=== PATIENT | female | born 1985 | race Caucasian/White ===

== ENCOUNTER 2017-02-09 14:26 | Emergency (ER) | payer SELFPAY ==
[~2017-02-09] VITALS: Ht 165.1 cm; Wt 66.0 kg
[2017-02-09 14:37] VITALS: BP 118/70; PULSE 88; RESP 16; TEMP 98.6; O2SAT 100
--- NOTE | 2017-02-09 15:14 | PD ---
HPI Chief Complaint: Fall Time Seen by Provider: 14:39 Travel History International Travel<30 days: No Contact w/Intl Traveler<30days: No Traveled to known affect area: No History of Present Illness HPI This is a 31-year-old female with a history of polycystic ovarian disease, endometriosis, pituitary tumor, presents today with complaints of neck and head pain and lower back pain. The patient was at the [facility] for which she is being treated for opiate addiction, and was leaning back on a chair when she slipped and fell striking her head and low back. She states she heard a crack in her neck when she slid back. There is no numbness or tingling of her extremities. There is no weakness noted. There are no other complaints. The patient denies any loss of consciousness. PFSH Past Medical History ?: Not Social History Alcohol Use: Yes Tobacco Use: Yes Substance Use: Yes (in-pt recovery unit) Allergies-Medications (Allergen,Severity, Reaction): Coded Allergies: No Known Allergies (Unverified , 02/09/17) Reported Meds & Prescriptions Reported Meds & Active Scripts Active Reported Trazodone (Trazodone HCl) 50 Mg Tab 50 Mg PO HS PRN Colace (Docusate Sodium) 100 Mg Cap 100 Mg PO BID PRN Bisacodyl EC (Bisacodyl) 5 Mg Tabec 5 Mg PO DAILY PRN Guaifenesin 100 Mg/5 Ml Syp 30 Ml PO Q4HR PRN Clonidine (Clonidine HCl) 0.1 Mg Tab 0.1 Mg PO Q4-6H PRN Vistaril (Hydroxyzine Pamoate) 50 Mg Cap 50 Mg PO Q4-6H PRN Bentyl (Dicyclomine HCl) 20 Mg Tab 20 Mg PO QID PRN Benadryl Allergy (Diphenhydramine HCl) 25 Mg Tab 25 Mg PO Q6H PRN Milk of Magnesia Liq (Magnesium Hydroxide) 400 Mg/5 Ml Susp 30 Ml PO DAILY PRN Loperamide (Loperamide HCl) 2 Mg Cap 2 Mg PO DIRECTED PRN Two capsule after initial loose stool , then one capsuleeach loose stool. Not to exceed 8 capsules per day. Tums (Calcium Carbonate (Antacid)) 500 Mg Chew 500-1,000 Mg CHEW TID PRN Mylanta Liq (Wikljqvb-Wuukfzlen-Eymfpqleajf Liq) 200-200-20 Mg/5 Ml Susp 30 Ml PO Q2-3HR PRN Take between meals or as directed. Shake well. Maximum 120 ml/24 hrs. Mapap (Acetaminophen) 500 Mg Tab 1,000 Mg PO Q6HR PRN Ibuprofen 400 Mg Tab 400 Mg PO Q4H PRN Zofran Odt (Ondansetron Odt) 4 Mg Tab 4 Mg SL Q6HR PRN Folate (Folic Acid) 1 Mg Tab 1 Mg PO DAILY Thiamine (Thiamine HCl) 100 Mg Tab 100 Mg PO DAILY Multi Vitamin (Multiple Vitamin) 1 Tab Tab 1 Tab PO DAILY Ibuprofen 800 Mg Tab 800 Mg PO TID Vistaril (Hydroxyzine Pamoate) 50 Mg Cap 50 Mg PO TID Prozac (Fluoxetine HCl) 40 Mg Cap 40 Mg PO DAILY Seroquel (Quetiapine Fumarate) 100 Mg Tab 100 Mg PO HS Levsin-SL (Hyoscyamine Sulfate) 0.125 Mg Subl 0.125 Mg SL QID Suboxone Sublingual Film (Buprenorphine-Naloxone Sublingual Film) 8-2 Mg Film 1 Film SL BID Unique ID number required: Bactrim DS (Sulfamethoxazole-Trimethoprim) 800-160 Mg Tab 1 Tab PO BID Nicotine Patch (Nicotine) 14 Mg/24 Hr Patch 14 Mg T-DERMAL DAILY Wellbutrin Xl 24 HR (Bupropion HCl) 150 Mg Tab 150 Mg PO DAILY Review of Systems Except as stated in HPI: all other systems reviewed are Neg Eyes: No: Diploplia, Blurred Vision, Photophobia HENT: Positive: Headaches, Neck Pain Cardiovascular: No: Chest Pain or Discomfort, Palpitations Respiratory: No: Cough, Shortness of Breath Gastrointestinal: No: Nausea, Vomiting Musculoskeletal: Positive: Pain (pain in the low back), No: Limited ROM, Weakness Neurologic: Positive: Headache, No: Weakness, Focal Abnormalities, Change in Mentation Physical Exam Narrative GENERAL: Well-nourished, well-developed patient, in C-spine immobilization. SKIN: Focused skin assessment warm/dry. HEAD: Normocephalic. The patient has subjective tenderness in the back of her head. There is no hematoma or abrasion. EYES: No scleral icterus. No injection or drainage. NECK: Trachea midline. Patient in c-collar immobilization. She reports pain in her upper neck. There is no posterior spinous process tenderness to palpation. CARDIOVASCULAR: Regular rate and rhythm without murmurs, gallops, or rubs. RESPIRATORY: Breath sounds equal bilaterally. No accessory muscle use. GASTROINTESTINAL: Abdomen soft, non-tender, nondistended. MUSCULOSKELETAL: No cyanosis, or edema. BACK: Subjective tenderness in the lower lumbar region. NEUROLOGICAL: Awake and alert. Cranial nerves II through XII intact. Motor grossly within normal limits. Five out of 5 muscle strength in all muscle groups. Normal speech. Data Data Last Documented VS Vital Signs Date Time Temp Pulse Resp B/P Pulse Ox O2 Delivery O2 Flow Rate FiO2 02/09/17 14:44 100 Room Air 02/09/17 14:37 98.6 88 16 118/[address] Brain W/O Iv Contrast(Rout) (02/09/17 14:40) Ct Cerv Spine W/O Contrast (02/09/17 14:40) Spine, Lumbar - Ltd (Ap & Lat) (02/09/17 14:40) Ketorolac Inj (Toradol Inj) (02/09/17 16:00) MDM Medical Decision Making Medical Screen Exam Complete: Yes Emergency Medical Condition: Yes Differential Diagnosis Blunt head trauma versus intracranial hemorrhage versus cervical spine injury versus lumbar spine injury Narrative Course 31-year-old who status post falling backwards on a chair striking her head neck and lower back. The patient presents with head neck and lower back pain. CT head cervical spine and lumbar spine plain x-ray show no evidence of acute injury. The patient will be discharged with a Medrol Dosepak. She'll be instructed to use Motrin for pain. Diagnosis Primary Impression: Closed head injury Additional Impressions: Cervical strain Lumbar strain Additional Instructions: Ice 24 hours then moist heat. Ibuprofen for discomfort. Med/Other Pt SpecificInfo: Prescription(s) given Scripts Methylprednisolone Dosepak (Medrol Dosepak)4 Mg Dspk4 Mg PO DIRECTED #1 DSPK Ref 0 Per Pharmacist direction Prov:Kevin Villarreal MD 02/09/17 Disposition: 01 DISCHARGE HOME Condition: Stable Kevin Villarreal MD February 09, 2017 15:14
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
--- NOTE | 2017-02-09 15:45 | RADRPT ---
EXAM DATE/TIME: 02/09/2017 15:37 [facility] COMPARISON: No previous studies available for comparison. INDICATIONS : Fall from chair with head and neck pain. RADIATION DOSE: 35.60 CTDIvol (mGy) MEDICAL HISTORY : None SURGICAL HISTORY : None. ENCOUNTER: Initial ACUITY: 1 day PAIN SCALE: 5/10 LOCATION: Bilateral cranial Head and neck TECHNIQUE: Multiple contiguous axial images were obtained of the head. Using automated exposure control and adj ustment of the mA and/or kV according to patient size, radiation dose was kept as low as reasonably a chievable to obtain optimal diagnostic quality images. FINDINGS: CEREBRUM: The ventricles are normal for age. No evidence of midline shift, mass lesion, hemorrhage or acute in farction. No extra-axial fluid collections are seen. POSTERIOR FOSSA: The cerebellum and brainstem are intact. The 4th ventricle is midline. The cerebellopontine angle i s unremarkable. EXTRACRANIAL: The visualized portion of the orbits is intact. SKULL: The calvaria is intact. No evidence of skull fracture. CONCLUSION: Negative for fracture.. Sanya Kirkland MD FACR on February 09, 2017 at 15:44 Board Certified Radiologist. This report was verified electronically.
[2017-02-09] MEDS ORDERED: BACT800T5 PO (15:49)
[2017-02-09] MEDS ORDERED: BUPR150XL PO (15:49)
[2017-02-09] MEDS ORDERED: NICO14DI T-DERMAL (15:49)
[2017-02-09] MEDS ORDERED: SUBO8MIS SL (15:49)
[2017-02-09] MEDS ORDERED: KETOROLAC TROMETHAMINE 30 MG/ML (IVP) VIAL IV PUSH ONE (16:00)
[2017-02-09] MEDS ORDERED: SERO100T PO (16:01)
[2017-02-09] MEDS ORDERED: MULT-135 PO (16:01)
[2017-02-09] MEDS ORDERED: VIST50CA PO ×2 (16:01→16:17)
[2017-02-09] MEDS ORDERED: LEVS0.124 SL (16:01)
[2017-02-09] MEDS ORDERED: IBUP800T23 PO (16:01)
[2017-02-09] MEDS ORDERED: IBUP400T20 PO (16:01)
[2017-02-09] MEDS ORDERED: THIA100T PO (16:01)
[2017-02-09] MEDS ORDERED: ZOFR4TAB3 SL (16:01)
[2017-02-09] MEDS ORDERED: PROZ40CA PO (16:01)
[2017-02-09] MEDS ORDERED: FOLI1TAB4 PO (16:01)
[2017-02-09] MEDS ORDERED: MAPA500T PO (16:03)
[2017-02-09] MEDS ORDERED: MYLASUS2 PO (16:06)
[2017-02-09] MEDS ORDERED: TUMS500C CHEW (16:08)
[2017-02-09] MEDS ORDERED: LOPE2CAP PO (16:09)
[2017-02-09] MEDS ORDERED: MILKSUS PO (16:11)
[2017-02-09] MEDS ORDERED: BENA25TA3 PO (16:12)
--- NOTE | 2017-02-09 16:15 | RADRPT ---
EXAM DATE/TIME: 02/09/2017 15:37 [facility] COMPARISON: No previous studies available for comparison. INDICATIONS : Fall from chair with head and neck pain. RADIATION DOSE: 19.31 CTDIvol (mGy) MEDICAL HISTORY : None SURGICAL HISTORY : None. ENCOUNTER: Initial ACUITY: 1 day PAIN SCALE: 5/10 LOCATION: Bilateral neck TECHNIQUE: Volumetric scanning of the cervical spine was performed. Multiplanar reconstructions in the sagittal, coronal and oblique axial planes were performed. Using automated exposure control and adjustment o f the mA and/or kV according to patient size, radiation dose was kept as low as reasonably achievable to obtain optimal diagnostic quality images. FINDINGS: Degenerative disc disease is basically isolated and C4-5 with some loss of disc height and anteriorly directed marginal spurs. Vertebral body heights are maintained throughout without fracture or listhe sis. Spinal canal is widely patent. Asymmetry of the lobes of the thyroid with the right larger than the left. Detailed axial images as follows: C2-C3: The bony spinal canal is normal in size. No evidence of disc bulge or herniation. The neural forami na are bilaterally patent. C3-C4: The bony spinal canal is normal in size. No evidence of disc bulge or herniation. The neural forami na are bilaterally patent. C4-C5: The bony spinal canal is normal in size. No evidence of disc bulge or herniation. The neural forami na are bilaterally patent. C5-C6: The bony spinal canal is normal in size. No evidence of disc bulge or herniation. The neural forami na are bilaterally patent. C6-C7: The bony spinal canal is normal in size. No evidence of disc bulge or herniation. The neural forami na are bilaterally patent. C7-T1: The bony spinal canal is normal in size. No evidence of disc bulge or herniation. The neural forami na are bilaterally patent. CONCLUSION: 1. Mild degenerative disc disease isolated to the C4-5 level with some loss of disc height and anteri gilson directed marginal spurring. 2. Otherwise, vertebral heights are maintained throughout without fracture or listhesis. Spinal canal and neural foramina are patent throughout. 3. Asymmetry of the lobes of the thyroid with the right larger than the left. Ronaldo Lockhart MD on February 09, 2017 at 16:10 Board Certified Radiologist. This report was verified electronically.
[2017-02-09] MEDS ORDERED: BENT20TA PO (16:17)
[2017-02-09] MEDS ORDERED: CLON0.1T PO (16:17)
[2017-02-09] MEDS ORDERED: GUAI100S10 PO (16:21)
[2017-02-09] MEDS ORDERED: FLEE5TAB PO (16:23)
[2017-02-09] MEDS ORDERED: TRAZ50TA12 PO (16:25)
[2017-02-09] MEDS ORDERED: COLA100C3 PO (16:25)
[2017-02-09] MEDS ORDERED: MEDR4PAK PO (18:33)
[2017-02-09 19:13] VITALS: BP 115/72; PULSE 78; RESP 18; O2SAT 99
== END 2017-02-09 20:30 | disposition home or self-care (01) ==
LOC: NEPC 14:26
DX: S09.90XA Unspecified injury of head, initial encounter (principal); S16.1XXA Strain of muscle, fascia and tendon at neck level, initial encounter; S39.012A Strain of muscle, fascia and tendon of lower back, initial encounter; W07.XXXA Fall from chair, initial encounter; Y92.538 Other ambulatory health services establishments as the place of occurrence of the external cause
CPT/HCPCS: 70450; 72100; 72125; 96374; 99284; J1885

== ENCOUNTER 2017-05-15 11:53 | Emergency (ER) | payer BC ==
[~2017-05-15] VITALS: Ht 165.1 cm; Wt 72.5 kg
[~2017-05-15 11:53] MED LIST: BACT800T5 PO; BENA25TA3 PO; BENT20TA PO; BUPR150XL PO; CLON0.1T PO; COLA100C3 PO; FLEE5TAB PO; FOLI1TAB4 PO; GUAI100S10 PO; IBUP400T20 PO; IBUP800T23 PO; LEVS0.124 SL; LOPE2CAP PO; MAPA500T PO; MEDR4PAK PO; MILKSUS PO; MULT-135 PO; MYLASUS2 PO; NICO14DI T-DERMAL; PROZ40CA PO; SERO100T PO; SUBO8MIS SL; THIA100T PO; TRAZ50TA12 PO; TUMS500C CHEW; VIST50CA PO; ZOFR4TAB3 SL
[2017-05-15 11:54] VITALS: PULSE 98; RESP 20; TEMP 98.6; O2SAT 100
== END 2017-05-15 16:18 | disposition left against medical advice (07) ==
LOC: NED 11:53
DX: R51 Headache (principal); Z53.21 Procedure and treatment not carried out due to patient leaving prior to being seen by health care provider
CPT/HCPCS: 99281